=== PATIENT | female | born 1985 ===

== ENCOUNTER 2019-10-22 00:22 | Emergency (ER) | payer MEDICAID ==
[2019-10-22 00:34] VITALS: BP 135/92
--- NOTE | 2019-10-22 01:18 | XRay Report ---
RIGHT SHOULDER 3 VIEWS INDICATION / CLINICAL INFORMATION: pain COMPARISON: None available. FINDINGS: BONES / JOINT(S): No acute fracture or subluxation. No significant arthritis. SOFT TISSUES: No significant abnormality. ADDITIONAL FINDINGS: None. Signer Name: Lei Eason MD Signed: 10/22/2019 1:14 AM Workstation Name: [id number]
--- NOTE | 2019-10-22 01:19 | XRay Report ---
RIGHT HAND 2 VIEWS INDICATION / CLINICAL INFORMATION: Right hand pain COMPARISON: None available. FINDINGS: BONES / JOINT(S): No acute fracture or subluxation. No significant arthritis. SOFT TISSUES: No significant abnormality. ADDITIONAL FINDINGS: None. Signer Name: Lei Eason MD Signed: 10/22/2019 1:14 AM Workstation Name: [id number]
[2019-10-22] MEDS ORDERED: IBUPROFEN 800 MG TAB PO ONE (02:27)
[2019-10-22] MEDS ORDERED: HYDROcodone/ACETAMINOPHEN 5-325 MG TAB PO ONE (02:27)
--- NOTE | 2019-10-22 02:27 | Emergency Department Report ---
Upper Extremity - HPI Chief Complaint: Fall Stated Complaint: FALL BACK AND RT HAND INJURY Time Seen by Provider: 10/22/19 01:34 Upper Extremity: Right Shoulder, Right Arm, Right Elbow, Right Forearm, Right Wrist, Right Hand Occurred When: Today Mechanism: Fall Severity: severe Symptoms: Yes Pain with Movement (right upper extremity from shoulder to hand 07/02), Yes Limited Range of Movement, No Deformity, No Numbness, No Weakness, No Swelling, No Bruising/Ecchymosis, No Laceration or Abrasion Other History: This is a 34-year-old female here report that she was playing with her kids and she accidentally slipped and fell and tried to catch herself with her right arm and injured her she right shoulder down to her right hand. She is reporting pain. Denies any numbness or tingling. No medication taken prior to coming to the emergency room. Denies any bruising or cuts. Immunizations up-to-date including tetanus ED Review of Systems ROS: Stated complaint: FALL BACK AND RT HAND INJURY Other details as noted in HPI Constitutional: denies: chills, fever Respiratory: denies: cough, shortness of breath, wheezing Cardiovascular: denies: chest pain, palpitations, edema, syncope Gastrointestinal: denies: abdominal pain, nausea, vomiting Musculoskeletal: arthralgia. denies: back pain, joint swelling Skin: denies: rash Neurological: denies: headache, weakness, numbness, paresthesias, abnormal gait, vertigo ED Past Medical Hx - Past Medical History Previous Medical History?: Yes Additional medical history: Lupus. Multiple Myeloma - Surgical History Past Surgical History?: Yes Additional Surgical History: X 3. Tonsillectomy - Family History Family history: hypertension - Social History Smoking Status: Never Smoker Substance Use Type: None - Medications Home Medications: Home Medications Medication Instructions Recorded Confirmed Last Taken Type Ibuprofen [Motrin] 800 mg PO Q8HR PRN #12 tablet 10/22/19 Unknown Rx Upper Extremity Exam - Exam General: Vital signs noted. No distress. Alert and acting appropriately. This is a 34-year-old female well-nourished well-developed in no acute distress. Head and Torso: No HEENT Abnormality, No Neck Tenderness, No Chest/Lungs Abnormality, No Abdominal Tenderness, No Back Tenderness Shoulder Exam: Yes Shoulder Tenderness (right), Yes Normal Range of Motion in Shoulder (reports pain with movement), No Clavicle Tenderness, No Shoulder Deformity, No AC Joint Tenderness Arm Exam: Yes Arm/Humerus Tenderness, No Arm Deformity Elbow: Yes Elbow Tenderness, Yes Normal Range of Motion in Elbow (pain with movement) Forearm: Yes Forearm Tenderness (pain with palpation), Yes Pain with Pronation, Yes Pain with Supination, No Forearm Deformity Wrist: Yes Wrist Tenderness, Yes Normal ROM in Wrist (pain with movement), No Wrist Deformity, No Snuffbox Tenderness, No Pain with Axial Thumb Compression Hand: Yes Hand Tenderness, No Hand Deformity, No Digit Tenderness, No Normal ROM in Digit(s), No Digit(s) Deformity, No Tendon Dysfunction CMS Exam: Yes Normal Distal Pulses (No cce. + 2 pulses in all extremities, no neurovascular compromise), Yes Normal Capillary Refill, Yes Normal Distal Sensation, No Broken Skin ED Course Vital Signs 10/22/19 00:32 Temperature 98.3 F Pulse Rate 97 H Respiratory 18 Rate Blood Pressure 135/92 O2 Sat by Pulse 100 Oximetry Vital Signs 10/22/19 10/22/19 10/22/19 00:32 02:43 03:43 Temperature 98.3 F Pulse Rate 97 H Respiratory 18 18 18 Rate Blood Pressure 135/92 O2 Sat by Pulse 100 Oximetry 10/22/19 04:25 Temperature Pulse Rate 89 Respiratory 18 Rate Blood Pressure O2 Sat by Pulse 100 Oximetry - Reevaluation(s) Reevaluation #1: 10/22/19 04:11 Patient was given Motrin 800 mg and [place] 5/325 1 tablets by mouth for right upper extremity pain. Her pain is better. She says she feels better. See procedure note for splinting right upper extremity ED Medical Decision Making - Radiology Data Radiology results: report reviewed X-ray right shoulder, right elbow, right forearm to include wrist and right hand to include wrist dictated by radiologist and report reviewed by myself. Please see details below. Findings [facility] [address] [place] [address] XRay Report Signed Patient: COOPER TRAORE MR#: [id number] 522 : 1985 Acct:[id number] Age/Sex: 34 / F ADM Date: 10/22/19 Loc: ED Attending Dr: Ordering Physician: GRANT CLEARY Date of Service: 10/22/19 Procedure(s): XR forearm RT Accession Number(s): [id number] cc: GRANT CLEARY Fluoro Time In Minutes: RIGHT FOREARM 2 VIEWS INDICATION / CLINICAL INFORMATION: fall with RT ulnar and radial pain. Rt Wrist pain COMPARISON: None available. FINDINGS: BONES / JOINT(S): No acute fracture or subluxation. No significant arthritis. SOFT TISSUES: No significant abnormality. ADDITIONAL FINDINGS: None. Signer Name: Lei Eason MD Signed: 10/22/2019 3:07 AM Workstation Name: [id number] Transcribed By: Dictated By: Lei Eason MD Electronically Authenticated By: Lei Eason MD Signed Date/Time: 10/22/19306 DD/ 6 TD/TT: Findings [address] [address] XRay Report Signed Patient: COOPER TRAORE MR#: [id number] 522 : 1985 Acct:[id number] Age/Sex: 34 / F ADM Date: 10/22/19 Loc: ED Attending Dr: Ordering Physician: GRANT CLEARY Date of Service: 10/22/19 Procedure(s): XR elbow 3+V RT Accession Number(s): [id number] cc: GRANT CLEARY Fluoro Time In Minutes: Right elbow 3 views INDICATION: Right elbow pain following injury IMPRESSION: No fracture or subluxation of the right elbow is identified. Signer Name: Lei Eason MD Signed: 10/22/2019 3:08 AM Workstation Name: [id number] Transcribed By: Dictated By: Lei Eason MD Electronically Authenticated By: Lei Eason MD Signed Date/Time: 10/22/19307 DD/ 7 TD/TT: Findings [address] [address] XRay Report Signed Patient: COOPER TRAORE MR#: [id number] 522 : 1985 Acct:[id number] Age/Sex: 34 / F ADM Date: 10/22/19 Loc: ED Attending Dr: Ordering Physician: GRANT CLEARY Date of Service: 10/22/19 Procedure(s): XR forearm RT Accession Number(s): [id number] cc: GRANT CLEARY Fluoro Time In Minutes: RIGHT FOREARM 2 VIEWS INDICATION / CLINICAL INFORMATION: fall with RT ulnar and radial pain. Rt Wrist pain COMPARISON: None available. FINDINGS: BONES / JOINT(S): No acute fracture or subluxation. No significant arthritis. SOFT TISSUES: No significant abnormality. ADDITIONAL FINDINGS: None. Signer Name: Lei Eason MD Signed: 10/22/2019 3:07 AM Workstation Name: [id number] Transcribed By: SAI Dictated By: Lei Eason MD Electronically Authenticated By: Lei Eason MD Signed Date/Time: 10/22/19306 DD/ 6 TD/TT: Findings [facility] [address] [place] [address] XRay Report Signed Patient: COOPER TRAORE MR#: [id number] 522 : 1985 Acct:[id number] Age/Sex: 34 / F ADM Date: 10/22/19 Loc: ED Attending Dr: Ordering Physician: NATHAN POWELL MD Date of Service: 10/22/19 Procedure(s): XR shoulder 2+V RT Accession Number(s): [id number] cc: NATHAN POWELL MD Fluoro Time In Minutes: RIGHT SHOULDER 3 VIEWS INDICATION / CLINICAL INFORMATION: pain COMPARISON: None available. FINDINGS: BONES / JOINT(S): No acute fracture or subluxation. No significant arthritis. SOFT TISSUES: No significant abnormality. ADDITIONAL FINDINGS: None. Signer Name: Lei Eason MD Signed: 10/22/2019 1:14 AM Workstation Name: [id number] Transcribed By: SAI Dictated By: Lei Eason MD Electronically Authenticated By: Lei Eason MD Signed Date/Time: 10/22/19 0114 - Medical Decision Making Patient here reported that she had accidental fall and pain to her right upper extremity from her shoulder down to her hand. She denies any other injury. Patient found to have tenderness to right upper extremity but she does have good range of motion but reports pain with range of motion. Patient was most complaining of pain in her wrists, and elbow and tender to palpate to shoulder and forearm. X-rays of right upper extremity done and dictated by radiologist report reviewed by myself and no acute findings. Patient with accidental fall with pain to right upper extremity. I discussed x-ray report in diagnosis or treatment plan the patient and she voiced understanding. Patient was given [place] 5/325 and Motrin 800 mg by mouth and emergency room and she voiced relief of pain. Her vital signs are stable she is afebrile and discharged home with her family member in stable condition to follow up with primary care in 2-3 days. She was given an right upper extremity sling - Differential Diagnosis fracture versus dislocation, sprain, strain, MSK pain Critical care attestation.: If time is entered above; I have spent that time in minutes in the direct care of this critically ill patient, excluding procedure time. ED Disposition Clinical Impression: Accidental fall Qualifiers: Encounter type: initial encounter Qualified Code(s): W19.XXXA - Unspecified fall, initial encounter Pain, upper extremity Qualifiers: Laterality: right Qualified Code(s): M79.601 - Pain in right arm Disposition: DC-01 TO HOME OR SELFCARE Is pt being admited?: No Does the pt Need Aspirin: No Condition: Stable Instructions: Arthralgia (ED), RICE Therapy (ED), Fall Prevention (ED) Additional Instructions: If you condition worsens, please return to the emergency room otherwise follow- up with your primary care physician in 2-3 days Take medication as prescribed. To discharge instruction on Rice protocol You can wear right sling for 48 hours to rest right upper extremity Prescriptions: Ibuprofen [Motrin] 800 mg PO Q8HR PRN #12 tablet PRN Reason: pain Referrals: PRIMARY CARE, [Primary Care Provider] - 2-3 Days Forms: Accompanied Note, Work/School Release Form(ED)
--- NOTE | 2019-10-22 03:11 | XRay Report ---
RIGHT FOREARM 2 VIEWS INDICATION / CLINICAL INFORMATION: fall with RT ulnar and radial pain. Rt Wrist pain COMPARISON: None available. FINDINGS: BONES / JOINT(S): No acute fracture or subluxation. No significant arthritis. SOFT TISSUES: No significant abnormality. ADDITIONAL FINDINGS: None. Signer Name: Lei Eason MD Signed: 10/22/2019 3:07 AM Workstation Name: [id number]
--- NOTE | 2019-10-22 03:12 | XRay Report ---
Right elbow 3 views INDICATION: Right elbow pain following injury IMPRESSION: No fracture or subluxation of the right elbow is identified. Signer Name: Lei Eason MD Signed: 10/22/2019 3:08 AM Workstation Name: [id number]
== END 2019-10-22 04:25 | disposition home or self-care (01) ==
LOC: ED 00:22
DX: M79.601 Pain in right arm (principal); W01.0XXA Fall on same level from slipping, tripping and stumbling without subsequent striking against object, initial encounter; Y93.89 Activity, other specified; Y92.89 Other specified places as the place of occurrence of the external cause; Y99.8 Other external cause status